=== PATIENT | female | born 1965 | race Caucasian/White ===

== ENCOUNTER 2017-02-05 12:44 | Emergency (ER) | payer MEDICAID ==
[2009-10-28 12:07] VITALS: BMI 27.8
[2017-02-05 13:31] LABS: BASOPHILS 0.4 % (0-2); EOSINOPHILS 0.6 % (0-7); HEMOGLOBIN 15.9 g/dL (12-16); IMMATURE GRANULOCYTES 0.2 % (0-5); LYMPHOCYTES 24.9 % (15-50); MCH 32.1 pg (26.0-34.0); MCHC 35.3 g/dL (31.0-37.0); MCV 90.9 fL (80.0-100.0); MEAN PLATELET VOLUME 9.4 fL (7.4-10.4); MONOCYTES 4.8 % (2-11); NEUTROPHILS 69.1 % (40-80); PLATELET COUNT 284 10x3/uL (130-400); RBC 4.95 10x6/uL (4.00-5.40); RDW 12.6 % (11.5-14.5); WBC 10.8 10x3/uL (4.8-10.8)
[2017-02-05 13:46] LABS: ALBUMIN 4.2 g/dL (3.4-5.0); ALKALINE PHOSPHATASE 111 U/L (46-116); ALT (SGPT) 35 U/L (10-68); BILIRUBIN - TOTAL 0.59 mg/dL (0.2-1.3); CALC OSMOLALITY 276 mosm/kg (275-300); CALCIUM 9.5 mg/dL (8.5-10.1); CARBON DIOXIDE 31.7 mmol/L (21.0-32.0); CHLORIDE - SERUM 100 mmol/L (98-107); CREATININE - SERUM 0.8 mg/dL (0.6-1.3); GLUCOSE 120 mg/dL (74-106); POTASSIUM - SERUM 3.6 mmol/L (3.5-5.1); PROTEIN - SERUM 8.2 g/dL (6.4-8.2); SODIUM 137 mmol/L (136-145); UREA NITROGEN 18 mg/dL (7-18); eGFR NON AFRICAN AMERICAN 79 mL/min (90-120)
[2017-02-05 13:58] LABS: CKMB 0.6 U/L (0.0-3.6); CREATINE KINASE 63 UL (21-215)
[2017-02-05 14:05] LABS: TROPONIN-I < 0.017 ng/mL (0.000-0.060)
== END 2017-02-05 15:30 | disposition home or self-care (01) ==
LOC: D.ER 12:44
PROVIDERS: Emergency Medicine
DX: R07.89 Other chest pain (principal); I45.10 Unspecified right bundle-branch block

== ENCOUNTER → 2017-03-17 09:15 | Outpatient (CLI) | payer MEDICAID ==
[2009-10-28 12:07] VITALS: BMI 27.8
== END ==
LOC: D.MAMMO 09:15
DX: Z12.31 Encounter for screening mammogram for malignant neoplasm of breast (principal)

== ENCOUNTER 2017-10-05 06:01 | Day surgery (SDC) | payer MEDICAID ==
[~2017-10-05] VITALS: Ht 157.5 cm; Wt 85.0 kg
[2017-10-05] MEDS ORDERED: LIPITOR20 MG PO (06:28)
[2017-10-05] MEDS ORDERED: CATAPRES0.1 MG PO (06:29)
[2017-10-05] MEDS ORDERED: CETIRIZINE HCL5 MG PO (06:30)
[2017-10-05 06:39] VITALS: Ht 157.5 cm; Wt 85.0 kg
[2017-10-05 07:31] LABS: HEMATOCRIT 43.9 % (36.0-48.0); HEMOGLOBIN 15.4 g/dL (12-16); MCH 32.6 pg (26.0-34.0); MCHC 35.1 g/dL (31.0-37.0); MCV 92.8 fL (80.0-100.0); MEAN PLATELET VOLUME 9.2 fL (7.4-10.4); RBC 4.73 10x6/uL (4.00-5.40); RDW 12.5 % (11.5-14.5); WBC 8.2 10x3/uL (4.8-10.8)
== END 2017-10-05 09:35 | disposition home or self-care (01) ==
LOC: D.OPS 06:01
PROVIDERS: Anesthesiology
DX: Z12.11 Encounter for screening for malignant neoplasm of colon (principal); Z01.812 Encounter for preprocedural laboratory examination

== ENCOUNTER → 2018-04-06 12:18 | Outpatient (CLI) | payer MEDICAID ==
[2017-10-05 06:39] VITALS: BMI 34.3
[~2018-04-06 12:18] MED LIST: CATAPRES0.1 MG PO; CETIRIZINE HCL5 MG PO; IMODIUM2 MG PO; LIPITOR20 MG PO; ZOFRAN ODT4 MG/UDTAB PO
[2018-04-06 12:56] LABS: UDS - AMPHET NEGATIVE QUAL (NEGATIVE); UDS - BARB NEGATIVE QUAL (NEGATIVE); UDS - BENZO NEGATIVE QUAL (NEGATIVE); UDS - COCAINE NEGATIVE QUAL (NEGATIVE); UDS - OPIATE NEGATIVE QUAL (NEGATIVE); UDS - PCP NEGATIVE QUAL (NEGATIVE); UDS - THC NEGATIVE QUAL (NEGATIVE)
== END | disposition home or self-care (01) ==
LOC: D.LAB 12:18
PROVIDERS: Nurse Practitioner Acute Care
DX: B18.2 Chronic viral hepatitis C (principal)

== ENCOUNTER 2018-04-09 13:44 | Emergency (ER) | payer MEDICAID ==
[~2018-04-09] VITALS: Ht 157.5 cm; Wt 81.4 kg
[~2018-04-09 13:44] MED LIST changes: -IMODIUM2 MG PO; -ZOFRAN ODT4 MG/UDTAB PO
[2018-04-09 13:52] VITALS: Ht 157.5 cm; Wt 81.4 kg
[2018-04-09 14:17] LABS: BASOPHILS 0.2 % (0-2); EOSINOPHILS 1.9 % (0-7); HEMOGLOBIN 16.8 g/dL (12-16); IMMATURE GRANULOCYTES 0.2 % (0-5); LYMPHOCYTES 28.1 % (15-50); MCH 33.5 pg (26.0-34.0); MCHC 36.5 g/dL (31.0-37.0); MCV 91.6 fL (80.0-100.0); MEAN PLATELET VOLUME 9.4 fL (7.4-10.4); MONOCYTES 6.3 % (2-11); NEUTROPHILS 63.3 % (40-80); PLATELET COUNT 248 10x3/uL (130-400); RBC 5.02 10x6/uL (4.00-5.40); RDW 12.6 % (11.5-14.5); WBC 9.1 10x3/uL (4.8-10.8)
[2018-04-09 14:32] LABS: APPEARANCE CLEAR (CLEAR); BILIRUBIN NEGATIVE (NEGATIVE); COLOR YELLOW (YELLOW); GLUCOSE NEGATIVE (NEGATIVE); KETONE NEGATIVE (NEGATIVE); NITRITE NEGATIVE (NEGATIVE); PROTEIN NEGATIVE (NEGATIVE); UROBILINOGEN NORMAL (NORMAL)
[2018-04-09] MEDS ORDERED: ZOFRAN ODT4 MG/UDTAB PO (14:35)
[2018-04-09] MEDS ORDERED: IMODIUM2 MG PO (14:35)
[2018-04-09 14:55] LABS: ALBUMIN 3.9 g/dL (3.4-5.0); ANION GAP 12.1 mmol/L (8-16); BILIRUBIN - TOTAL 0.77 mg/dL (0.2-1.3); CALCIUM 8.8 mg/dL (8.5-10.1); CARBON DIOXIDE 26.6 mmol/L (21.0-32.0); CREATININE - SERUM 0.9 mg/dL (0.6-1.3); POTASSIUM - SERUM 3.7 mmol/L (3.5-5.1); PROTEIN - SERUM 7.6 g/dL (6.4-8.2)
[2018-04-09 15:57] VITALS: BP 138/80
== END 2018-04-09 16:03 | disposition home or self-care (01) ==
LOC: D.ER 13:44
PROVIDERS: Emergency Medicine
DX: R19.7 Diarrhea, unspecified (principal); R10.9 Unspecified abdominal pain; K92.1 Melena; B19.20 Unspecified viral hepatitis C without hepatic coma

== ENCOUNTER → 2018-08-16 19:53 | Outpatient (CLI) | payer MEDICAID ==
[2018-04-09 13:52] VITALS: BMI 32.8
[~2018-08-16 19:53] MED LIST changes: +IMODIUM2 MG PO; +ZOFRAN ODT4 MG/UDTAB PO
== END | disposition home or self-care (01) ==
LOC: D.MAMMO 15:30
DX: Z12.31 Encounter for screening mammogram for malignant neoplasm of breast (principal)

== ENCOUNTER 2019-05-15 08:44 | Day surgery (SDC) | payer MEDICAID ==
[2019-05-14 08:40] LABS: HEMATOCRIT 44.1 % (36.0-48.0); HEMOGLOBIN 15.2 g/dL (12-16); MCH 32.3 pg (26.0-34.0); MCHC 34.5 g/dL (31.0-37.0); MCV 93.8 fL (80.0-100.0); MEAN PLATELET VOLUME 9.2 fL (7.4-10.4); RBC 4.7 10x6/uL (4.00-5.40); RDW 12.4 % (11.5-14.5); WBC 7.9 10x3/uL (4.8-10.8)
[~2019-05-15] VITALS: Ht 157.5 cm; Wt 79.4 kg
[~2019-05-15 08:44] MED LIST changes: +ESTRACE 0.0142.5 GM VG; +LIPITOR40 MG PO
[2019-05-15 09:17] VITALS: BP 125/69; Ht 157.5 cm; Wt 79.4 kg
--- NOTE | 2019-05-15 15:24 | NUR ---
HEAVY COUGHING RESOLVED AT THIS TIME
--- NOTE | 2019-05-15 19:24 | NUR ---
1540 PT ARRIVED TO ROOM WITH 4LITERS NC. VS STABLE 1600 PT REQUESTED TO GO TO BATHROOM TO URINATE. O2 OFF AND PT VOIDED IN BATHROOM. REQUESTED TO EAT STANDING UP. O2 SATS 94% ON RA. MEDICATED FOR PAIN. 1615 IV REMOVED AND INSTRUCTIONS GIVEN, VAGINAL PACKING REMOVED. 1630 PT IV REMOVED AND D/C HOME
--- NOTE | 2019-05-16 09:27 | OP ---
PATIENT NAME: DENISSE RANGEL MEDICAL RECORD: [id number] :61 LOCATION:[facility] ADMISSION DATE: SURGEON: JAYLIN BRUMFIELD MD DATE OF OPERATION: 05/15/2019 SURGEON: Jaylin Brumfield MD ANESTHESIA: General anesthesia by Joanna Ibrahim CRNA. DIAGNOSIS: Female stress urinary incontinence. PROCEDURES: Cystoscopy, pubovaginal sling with [employer] Obtryx II mesh graft. FINDINGS: On cystoscopy, no bladder injury. No bladder tumors. Single ureteral orifices bilaterally. BLOOD LOSS: Minimal. CLINICAL HISTORY: This is a 54-year-old female, A0, who has symptoms of stress urinary incontinence for the past 3-4 years. She has had a left oophorectomy for ovarian cysts and a LEEP procedure. She uses 2-4 diapers per day and one diaper at night. She has nocturia times 1, daytime urinary frequency with greater than 10 and she has urgency also. She leaks urine with coughing, sneezing, laughing, exercising, and arising from a bed or chair. She has no fecal incontinence issues. When she was examined, she had urethral hypermobility with stress urinary incontinence with coughing. Tin test was positive. She did not have a cystocele, enterocele, or rectocele. I discussed nonoperative measures such as Kegel exercises. She did not wish to be trying them. She wanted to proceed directly to surgery. The risks of mesh use and the pubovaginal sling were discussed. These include infection, graft erosion, and graft extrusion into the vagina, dyspareunia, and pelvic pain. Adverse outcomes include persistence of stress incontinence, urinary retention, or incomplete bladder emptying, exacerbation of urge incontinence. She wishes to proceed with the surgery. SHE IS ALLERGIC TO FLAGYL. She was given Ancef 2 grams IV office automation clerk to the OR. DESCRIPTION OF PROCEDURE: The patient was given induction of general anesthesia while in supine position. She was then placed into lithotomy position and prepped and draped. A weighted speculum was used to hold down the posterior vaginal wall. A Mcginnis catheter was inserted into the bladder and put to bag drainage. The #1 nylon sutures were placed through the labia majora to retract the labia majora laterally. These were anchored to the medial thighs. The anterior vaginal wall was then infiltrated with Pitressin solution. Twenty units of vasopressin was dissolved in 100 mL of injectable normal saline. This was used for hydrodissection in the periurethral and bladder neck area. A 1-cm vertical incision was then made over the undersurface of the urethra. Dissection was then continued with Metzenbaum scissors laterally until we perforated through the pubocervical fascia. The obturator membrane on each side was cleared. The trocar entry point was then landmarked. This is inferior to the insertion of the adductor longus muscle onto the descending pubic ramus. A melanie was made at this point on each side with a marking pen. A stab incision was made using a #15 blade. The helical trocars were then passed deep to the descending pubic ramus and perforated the obturator membrane at the apex of the obturator foramen. The trocar was then passed out through the vaginal OPERATIVE REPORT [id number] DENISSE RANGEL dissection incision. Here the end of the graft was attached to the tip of the trocar and the trocar was retracted, resulting in transobturator passage of the graft. There is a tab on the midpoint of the graft. This was placed under the midpoint of the urethra. We then removed the Mcginnis catheter and performed cystoscopy. The cystoscopy showed no signs of bladder or urethral injury. The bladder was filled to capacity with normal saline. By pushing on the suprapubic region, we could elicit urinary leakage. The graft arms are slowly tightened up until further suprapubic pressure could not elicit any further leakage. The legs were placed relatively flat for the graft tensioning to prevent over tensioning. Once we had achieved a degree of continence, then the Mcginnis catheter was placed back to drain the bladder. The clear plastic sheath material on the graft arms was removed on both sides. A hemostat was placed between the graft and the urethra to maintain the graft tension. This was then removed once the graft arms were cleared. The graft arms where they exited the inguinal skin was cut off at the skin level. They were then allowed to retract under the skin. The skin incisions were closed with simple interrupted 4-0 Vicryl. The vaginal incision was closed with a running 4-0 Monocryl. Vaginal packing consisting of Kerlix 2 inches wide, infiltrated with estrogen cream was placed into the vagina. This will be removed prior to her going home today. She will have a voiding trial. If she is unable to void, we will have to send her home with a Mcginnis catheter. TRANSINT:[id number] Voice Confirmation ID: [id number] DOCUMENT ID: [id number] JAYLIN BRUMFIELD MD at 0927 CC: [id number] DICTATION DATE: 05/15/19 1514 OUTBOUND SALES CONSULTANT: 05/16/[address] [facility] 05/15/[address] [id number]
== END 2019-05-15 16:30 | disposition home or self-care (01) ==
LOC: D.OPS 08:44
PROVIDERS: Anesthesiology; ATTEND Urology
DX: N39.3 Stress incontinence (female) (male) (principal)

== ENCOUNTER 2020-02-18 06:35 | Day surgery (SDC) | payer MEDICAID ==
[2020-02-15 13:26] LABS: HEMATOCRIT 43.8 % (36.0-48.0); HEMOGLOBIN 15.1 g/dL (12-16); MCH 31.9 pg (26.0-34.0); MCHC 34.5 g/dL (31.0-37.0); MCV 92.6 fL (80.0-100.0); MEAN PLATELET VOLUME 9.2 fL (7.4-10.4); RBC 4.73 10x6/uL (4.00-5.40); RDW 12.6 % (11.5-14.5); WBC 8.5 10x3/uL (4.8-10.8)
[2020-02-15 13:47] LABS: APTT 33.8 SECONDS (22.8-39.4); INR 0.9 (0.85-1.17); PROTIME 12.1 SECONDS (11.6-15.0)
[~2020-02-18] VITALS: Ht 157.5 cm; Wt 78.0 kg
[~2020-02-18 06:35] MED LIST changes: +[UNRECOGNIZED DRUG - OTHER] PO
[2020-02-18 07:28] VITALS: BP 132/83; Ht 157.5 cm; Wt 78.0 kg
--- NOTE | 2020-02-18 11:22 | NUR ---
PATIENT STATES "I HAVE WAITED LONG ENOUGH. THIS IS A 15 MINUTES PROCEDURE. I SHOULD HAVE BEEN FIRST." THIS NURSE EXPLAINS THAT DR DE JESUS'S FIRST CASE HAS HAD COMPLICATIONS AND HAS TAKEN MUCH LONGER THAN EXPECTED. PATIENT OPTS TO CANCEL PROCEDURE TODAY AND RESCHEDULE. IV DC'D WITH TIP INTACT. PATIENT DRESSING IN PERSONAL CLOTHING
== END 2020-02-18 11:25 | disposition home or self-care (01) ==
LOC: D.OPS 06:35
PROVIDERS: Anesthesiology; ATTEND Obstetrics & Gynecology
DX: R87.610 Atypical squamous cells of undetermined significance on cytologic smear of cervix (ASC-US) (principal); R87.810 Cervical high risk human papillomavirus (HPV) DNA test positive; Z53.21 Procedure and treatment not carried out due to patient leaving prior to being seen by health care provider

== ENCOUNTER 2020-03-03 09:45 | Day surgery (SDC) | payer MEDICAID ==
[~2020-03-03] VITALS: Ht 157.5 cm; Wt 78.0 kg
[2020-03-03 06:26] VITALS: BP 110/67; Ht 157.5 cm; Wt 78.0 kg
[2020-03-03 06:39] LABS: HCG URINE NEGATIVE (NEGATIVE)
[2020-03-03 06:54] LABS: HEMATOCRIT 45.2 % (36.0-48.0); HEMOGLOBIN 15.3 g/dL (12-16); MCH 31.7 pg (26.0-34.0); MCHC 33.8 g/dL (31.0-37.0); MCV 93.6 fL (80.0-100.0); MEAN PLATELET VOLUME 9.8 fL (7.4-10.4); RBC 4.83 10x6/uL (4.00-5.40); RDW 12.5 % (11.5-14.5); WBC 8.8 10x3/uL (4.8-10.8)
[2020-03-03 07:43] LABS: ANION GAP 10.9 mmol/L (8-16); CALCIUM 8.7 mg/dL (8.5-10.1); CARBON DIOXIDE 28.4 mmol/L (21.0-32.0); CREATININE - SERUM 0.9 mg/dL (0.6-1.3); POTASSIUM - SERUM 4.3 mmol/L (3.5-5.1)
[2020-03-03 08:29] LABS: ALBUMIN 3.6 g/dL (3.4-5.0); ANION GAP 13.5 mmol/L (8-16); BILIRUBIN - TOTAL 0.31 mg/dL (0.2-1.3); CALCIUM 8.8 mg/dL (8.5-10.1); CARBON DIOXIDE 26.8 mmol/L (21.0-32.0); CREATININE - SERUM 0.9 mg/dL (0.6-1.3); POTASSIUM - SERUM 4.3 mmol/L (3.5-5.1); PROTEIN - SERUM 6.5 g/dL (6.4-8.2)
--- NOTE | 2020-03-04 12:49 | OP ---
PATIENT NAME: DENISSE RANGEL MEDICAL RECORD: [id number] :61 LOCATION:D.[facility] ADMISSION DATE: SURGEON: EMRE DE JESUS MD DATE OF OPERATION: 03/03/2020 PREOPERATIVE DIAGNOSIS: Cervical dysplasia. POSTOPERATIVE DIAGNOSIS: Cervical dysplasia. PROCEDURE: LEEP. SURGEON: Emre De Jesus MD HYDRAULIC ELEVATOR CONSTRUCTOR: MAYA Nunez. ANESTHETIC: Sedation with LMA. FINDINGS: Unremarkable vaginal vault. After application of strong iodine solution, cervical dysplasia identified at the transformation zone. SPECIMEN REMOVED: Echo and endocervix. SPECIMEN DISPOSITION: Pathology. ESTIMATED BLOOD LOSS: Minimal. FLUIDS: 1 liter. URINE OUTPUT: Quantity sufficient void prior to this procedure. COMPLICATIONS: None. DRAINS: None. INDICATIONS: The patient is a 54-year-old female with history of dysplasia. The patient was consented for loop electrical excision procedure in the operating room. DESCRIPTION OF PROCEDURE: After informed consent was assured, the patient was taken to the operating room where anesthetic was obtained, and the patient was draped. The patient has insulated speculum inserted into the vagina. Cervix was visualized and strong iodine solution applied. The cervix was now injected with 1% lidocaine with epinephrine. After this had been performed, the appropriate LEEP wire was selected and transformation zone and the portion of the endocervix removed in a single pass. The bed of the excision site was cauterized with Bovie cautery. Monsel solution was now applied. All needles and sponges were correct at the last count. The speculum was removed. The patient was taken down from [facility] and went to recovery room in stable condition. TRANSINT:[id number] Voice Confirmation ID: [id number] DOCUMENT ID: [id number] OPERATIVE REPORT [id number] CLAIREDENISSE SHAY EMRE DE JESUS MD at 1249 CC: [id number] DICTATION DATE: 03/03/20 0715 LINUX UNIX ADMINISTRATOR: 03/03/20 [id number] [place] [address]
== END 2020-03-03 14:00 | disposition home or self-care (01) ==
LOC: D.OPS 09:45
PROVIDERS: Anesthesiology; ATTEND Obstetrics & Gynecology
DX: N87.9 Dysplasia of cervix uteri, unspecified (principal)

== ENCOUNTER 2020-09-05 15:40 | Outpatient (CLI) | payer MEDICAID ==
[2020-03-03 06:26] VITALS: BMI 31.5
== END 2020-09-05 23:59 | disposition home or self-care (01) ==
LOC: D.MAMMO 15:40
PROVIDERS: ATTEND Family Medicine Adult Medicine
DX: Z12.31 Encounter for screening mammogram for malignant neoplasm of breast (principal)